=== PATIENT | female | born 1995 | race Asian ===

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

== ENCOUNTER 2019-09-07 21:02 | Emergency (ER) | payer OTHER ==
[2019-09-07 21:07] VITALS: BP 108/68
--- NOTE | 2019-09-07 21:33 | ED ---
Laceration/Wound HPI - HPI Summary HPI Summary: Patient is a 24-year-old [id number] female with no significant past medical history who presents to the emergency department today complaining of a laceration to her left thumb. She states yesterday she was in the lab and cut her left thumb on a glass pipette. She states she cleaned the wound and put a bandage on it. She states she came into the emergency department today because it is still bleeding. She complains of one out of 10 pain and has full range of motion of her left thumb. She is neurovascularly intact. She denies use of blood thinners. She states the last time she had a tetanus vaccine was "a long time ago". She denies chest pain, shortness breath, abdominal pain, pain with urination, rash. - History of Current Complaint Stated Complaint: LT THUMB LACERATION PER PT Time Seen by Provider: 09/07/19 21:33 Hx Obtained From: Patient Onset/Duration: Sudden Onset Aggravating: Movement Alleviating: Compression Timing: Constant Onset Severity: Mild Current Severity: None Pain Intensity: 0 Pain Scale Used: 0-10 Numeric Associated Signs & Symptoms: Pain Related Hx: Dominant Hand (Right) - Allergy/Home Medications Allergies/Adverse Reactions: Allergies Allergy/AdvReac Type Severity Reaction Status Date / Time sulfamethoxazole Allergy Rash Verified 09/07/19 21:07 [From Bactrim] trimethoprim [From Bactrim] Allergy Rash Verified 09/07/19 21:07 PMH/Surg Hx/FS Hx/Imm Hx Endocrine/Hematology History: Denies: Hx Anticoagulant Therapy, Hx Diabetes History: Denies: Hx Chronic Renal Failure, Hx Dialysis Psychiatric History: Denies: Hx Autism Infectious Disease History: No Infectious Disease History: Denies: Traveled Outside the [place] in Last 30 Days - Family History Known Family History: Negative: Cardiac Disease, Diabetes - Social History Alcohol Use: None Substance Use Type: Reports: None Smoking Status (MU): Never Smoked Tobacco Review of Systems Constitutional: Negative Eyes: Negative Cardiovascular: Negative Respiratory: Negative Gastrointestinal: Negative Genitourinary: Negative Skin: Negative Neurological: Negative Psychological: Normal All Other Systems Reviewed And Are Negative: Yes Physical Exam - Summary Physical Exam Summary: 0.5 cm laceration to the distal tip of the left thumb with no involvement of the nail. Hemostasis is achieved. No evidence of infection or drainage. Digit has brisk capillary refill and full range of motion and strength. Triage Information Reviewed: Yes Vital Signs On Initial Exam: Initial Vitals Temp Pulse Resp BP Pulse Ox 98 F 58 16 108/68 98 09/07/19 21:05 09/07/19 21:05 09/07/19 21:05 09/07/19 21:05 09/07/19 21:05 Vital Signs Reviewed: Yes Appearance: Positive: Well-Appearing, No Pain Distress, Well-Nourished Skin: Positive: Warm, Skin Color Reflects Adequate Perfusion Eyes: Positive: Normal, EOMI ENT: Positive: Hearing grossly normal Respiratory/Lung Sounds: Positive: Clear to Auscultation, Breath Sounds Present Cardiovascular: Positive: RRR, S1, S2 Musculoskeletal: Positive: Strength/ROM Intact Neurological: Positive: Sensory/Motor Intact, Alert, Oriented to Person Place, Time, Normal Gait, Speech Normal Psychiatric: Positive: Normal AVPU Assessment: Alert Procedures - Sedation Patient Received Moderate/Deep Sedation with Procedure: No - Laceration/Wound Repair 1 Location: upper extremity - left thumb Description: Linear Length, Depth and Shape: 0.5 cm in length 0.2 cm in depth Laceration/Wound Explored: clean, no foreign body removed Closure: Skin Adhesive - closure was done using skin glue and Steri-Strips Layer Closure?: No Sterile Dressing Applied?: No - tube gauze dressing applied Diagnostics - Vital Signs Vital Signs Temp Pulse Resp BP Pulse Ox 09/07/19 21:05 98 F 58 16 108/68 98 - Laboratory Lab Statement: Any lab studies that have been ordered have been reviewed, and results considered in the medical decision making process. Laceration Repair Course/Dx - Course Course Of Treatment: Patient was evaluated in the emergency department for laceration to her left thumb. Patient was seen and examined. There is no evidence of infection or competition to her laceration. Vital signs are stable and she was afebrile. 0.5 cm laceration to the distal tip of the left thumb with no involvement of the nailbed was repaired using skin glue and Steri- Strips. After laceration repair a dressing using tube gauze was placed over the thumb. Her tetanus vaccination was updated. She was told to follow-up at [facility] in one to 2 days for wound check and was given information on how to care for her wound. She was told to return to the emergency department immediately if she developed any new or worsening symptoms. - Differential Dx Differental Diagnoses: Laceration - Clinical Impression Provider Diagnoses: Laceration of left thumb without damage to nail Discharge ED - Sign-Out/Discharge Documenting (check all that apply): Patient Departure - Discharge Plan Condition: Stable Disposition: HOME Patient Education Materials: Laceration (ED), Skin Adhesive Care (ED) Referrals: No Primary Care Phys,NOPCP [Primary Care Provider] - Additional Instructions: you were seen in the emergency department today due to a laceration to your thumb. your wound was repaired using skin glue and a Steri-Strip. Please keep the dressing that was applied dry for 24 hours and then feel free to remove it and redress as you see fit. Return to emergency department immediately if you develop any new or worsening symptoms. During your stay you were given updated immunization for TDap. - Billing Disposition and Condition Condition: STABLE Disposition: Home
[2019-09-07] MEDS ORDERED: Tetan/Diph/Pertus SYR(Tdap)* 0.5 ML SYR(BOOSTRIX) use SYR contains LATEX IM ONE ×2 (21:49)
== END 2019-09-07 22:00 | disposition home or self-care (01) ==
LOC: ED 21:02
DX: S61.012A Laceration without foreign body of left thumb without damage to nail, initial encounter (principal); Z23 Encounter for immunization; W25.XXXA Contact with sharp glass, initial encounter; Y92.219 Unspecified school as the place of occurrence of the external cause; Y99.8 Other external cause status; Z88.1 Allergy status to other antibiotic agents; Z88.2 Allergy status to sulfonamides
CPT/HCPCS: 90471; 90715; 99281